=== PATIENT | female | born 2000 | race Caucasian/White ===

== ENCOUNTER 2022-02-22 21:47 | Emergency (ER) | payer SELFPAY ==
--- NOTE | 2022-02-22 22:50 | NUR ---
PATIENT WAS JUST CALLED TO BE TRIAGED AT THIS TIME DUE TO SHORT STAFFING IN ER BUT PATIENT WAS NOT PRESENT IN THE WAITING ROOM OR OUTSIDE OF ER.
--- NOTE | 2022-02-22 23:20 | NUR ---
PATIENT WAS CALLED TO BE TRIAGED BUT WAS NOT PRESENT IN THE WAITING ROOM OR OUTSIDE OF ER.
--- NOTE | 2022-02-22 23:30 | NUR ---
PATIENT WAS CALLED TO BE TRIAGED BUT WAS NOT PRESENT. PATIENT WAS NOT TRIAGED OR SEEN BY ERMD.
== END 2022-02-22 23:30 | disposition left against medical advice (07) ==
LOC: ER 21:54
DX: Z53.21 Procedure and treatment not carried out due to patient leaving prior to being seen by health care provider (principal)

== ENCOUNTER 2022-07-20 19:52 | Emergency (ER) | payer OTHER ==
[~2022-07-20] VITALS: Ht 152.4 cm; Wt 85.7 kg
[2022-07-20 23:21] LABS: *BILIRUBIN,URIN NEGATIVE (NEGATIVE); *BLOOD, URINE 2+ (NEGATIVE); *CLARITY,URINE CLEAR (CLEAR); *KETONES,URINE NEGATIVE (NEGATIVE); LEUKOCYTE ESTERASE ,URINE TRACE (NEGATIVE); NITRITE, URINE POSITIVE (NEGATIVE); PH,URINE 5.5 (5.0-8.0); UGLUCOSE NEGATIVE (NEGATIVE)
[2022-07-20 23:38] LABS: *COLOR,URINE HAZY (YELLOW)
[2022-07-20 23:40] LABS: BACTERIA,URINE MODERATE /HPF (NONE SEEN); RBC,URINE 20-50 /HPF (0-3); SQUAMOUS EPITHELIAL CELL,UR MODERATE /HPF (NONE SEEN)
[2022-07-20 23:41] LABS: *URINE HCG, QUAL NEGATIVE (NEGATIVE)
--- NOTE | 2022-07-21 01:25 | NUR ---
PATIENT PLACED IN ROOM 2A AT THIS TIME.
[2022-07-21] MEDS ORDERED: CEFTRIAXONE 1 G in IV DEXTROSE 5% 50 ML IV ONE (01:45)
[2022-07-21] MEDS ORDERED: IV NORMAL SALINE 1000 ML BAG IV ONE ×2 (01:45→10:15)
[2022-07-21] MEDS ORDERED: CEFTRIAXONE /D5W 50ML IVPB **ER PYXIS IV ONE (01:51)
[2022-07-21] MEDS ORDERED: ONDANSETRON 4 MG/2 ML VIAL IV ONE ×2 (02:00→10:15)
[2022-07-21] MEDS ORDERED: IV NS 1000 ML 1,000 ML IV ONE (02:00)
[2022-07-21] MEDS ORDERED: KETOROLAC TROMETHAMINE 30 MG INJ IVP ONE (02:00)
[2022-07-21] MEDS ORDERED: KETOROLAC TROMETHAMINE 30 MG INJ ONE (02:05)
[2022-07-21] MEDS ORDERED: ONDANSETRON 4 MG/2 ML VIAL ONE ×2 (02:05→10:20)
[2022-07-21 02:29] LABS: HEMATOCRIT 35.5 % (31.2-41.9); MEAN CORPUSCULAR HEMOGLOBIN 27.9 uug (24.7-32.8); PLATELET COUNT (AUTO) 336 K/uL (179-408)
--- NOTE | 2022-07-21 02:30 | NUR ---
Patient taken to CT by sandip Engel
[2022-07-21 02:38] LABS: BILIRUBIN,DIRECT 0.2 mg/dL (0.0-0.2); BILIRUBIN,TOTAL 0.5 mg/dL (0.2-1.0); CREATININE 1.3 mg/dL (0.6-1.3); POTASSIUM 3.2 mmol/L (3.5-5.1); TOTAL PROTEIN, SERUM 8.8 g/dL (6.4-8.2)
--- NOTE | 2022-07-21 02:43 | NUR ---
Patient is back from CT
[2022-07-21] MEDS ORDERED: POTASSIUM CHLORIDE 20 MEQ TAB.PRT.SR PO ONE (07:00)
[2022-07-21] MEDS ORDERED: POTASSIUM CHLORIDE 20 MEQ TAB.PRT.SR ONE (07:08)
--- NOTE | 2022-07-21 07:15 | NUR ---
ENDORSED TO REFUGIO GUO
--- NOTE | 2022-07-21 07:16 | NUR ---
Received report from Liudmila GUO.
--- NOTE | 2022-07-21 09:30 | NUR ---
Called [facility] spoke to Leif - rn case manager regarding status of pt's transfer. Summary of the clinicals were faxed ([phone]), direct phone number is .
--- NOTE | 2022-07-21 09:45 | NUR ---
Called [facility] for dispatch, will pick-up the patient at 11am. Pt and made aware.
--- NOTE | 2022-07-21 09:55 | NUR ---
Gave report to Sophie RN - charge nurse at [facility] - .
[2022-07-21] MEDS ORDERED: MORPHINE SULFATE 4 MG/1 ML DISP.SYRIN IV ONE (10:15)
[2022-07-21] MEDS ORDERED: MORPHINE SULFATE 4 MG/1 ML DISP.SYRIN ONE (10:20)
--- NOTE | 2022-07-21 10:44 | NUR ---
BS = 88
--- NOTE | 2022-07-21 11:19 | NUR ---
IV Hydration of 3rd bag of NS 1L not done but was still infusing upon pick-up by Kathy, on bolus with remaining fluid volume of 700ml. IV site intact and patent. No signs of infiltration.
--- NOTE | 2022-07-21 11:20 | NUR ---
Pt has been picked-up by 2 risk analyst from [facility]. Pt was AOX3, ambulatory, afebrile, skin intact. V/S were WNL.
== END 2022-07-21 11:25 | disposition short-term general hospital (02) ==
LOC: ER 19:52
DX: N10 Acute pyelonephritis (principal); N20.0 Calculus of kidney; E87.6 Hypokalemia; Z20.822 Contact with and (suspected) exposure to COVID-19
CPT/HCPCS: 87426; 81001; 84703; 87040 ×4; 99285; 74176; 96365; 96361; 96375; 80076; 80048; 85025; 36415; 83605; J0696; J1885; J2405 ×2; J2270; J7040 ×3